=== PATIENT | female | born 1980 | race Hispanic/Latino ===

== ENCOUNTER 2021-01-14 18:04 | Emergency (ER) | payer SELFPAY ==
[~2021-01-14] VITALS: Ht 160 cm; Wt 89.0 kg
[2021-01-14 18:35] LABS: HCG SERUM/URINE (NEG/POS) NEGATIVE (NEGATIVE)
[2021-01-14] MEDS ORDERED: AZITHROMYCIN500 MG PO ×2 (19:44→19:45)
[2021-01-14] MEDS ORDERED: TESSALON PERLE100 MG PO ×2 (19:44→19:45)
[2021-01-14] MEDS ORDERED: MEDDOSEPAK PO (19:45)
[2021-01-14 19:55] VITALS: BP 128/76
== END 2021-01-14 20:06 | disposition home or self-care (01) | DRG 203 ==
LOC: ED 18:04
DX: J45.909 Unspecified asthma, uncomplicated (principal); Z20.822 Contact with and (suspected) exposure to COVID-19